=== PATIENT | male | born 1990 | race Caucasian/White ===

== ENCOUNTER 2017-04-02 01:28 | Emergency (ER) | payer SELFPAY ==
[~2017-04-02] VITALS: Ht 182.9 cm; Wt 93.5 kg
[2017-04-02 01:31] VITALS: Ht 182.9 cm; Wt 93.5 kg
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
--- NOTE | 2017-04-02 03:59 | RADRPT ---
PROCEDURE: XR Chest. CLINICAL INDICATION: chest pain TECHNIQUE: Portable single view of the chest COMPARISON: None. FINDINGS: The cardiomediastinal silhouette appears within normal limits. The lungs are clear and no pleural e ffusion or significant edema is seen. No bony abnormality is seen. IMPRESSION: No definite acute pulmonary disease. RPTAT: [facility] Maddy Mckee Physician Date Time Electronically viewed and signed by Maddy Mckee, Physician on 04/02/2017 03:59 LE/
[2017-04-02] MEDS ORDERED: HYDR-906 PO (04:08)
[2017-04-02] MEDS ORDERED: CYCL-319 PO (04:08)
[2017-04-02] MEDS ORDERED: IBUP-1542 PO (04:08)
[2017-04-02 04:32] VITALS: BP 126/85; PULSE 80; RESP 18; TEMP 98.1
== END 2017-04-02 04:35 | disposition home or self-care (01) ==
LOC: FTE 01:28
DX: S16.1XXA Strain of muscle, fascia and tendon at neck level, initial encounter (principal); S39.012A Strain of muscle, fascia and tendon of lower back, initial encounter; R07.89 Other chest pain; X58.XXXA Exposure to other specified factors, initial encounter; Y92.89 Other specified places as the place of occurrence of the external cause
CPT/HCPCS: 71010; 93005